=== PATIENT | male | born 1980 | race Caucasian/White ===

== ENCOUNTER 2017-10-24 21:32 | Emergency (ER) | payer OTHER ==
[2017-10-25] MEDS: ONDANSETRON (ODT) 4 MG TAB ODT (00:44)
[2017-10-25] MEDS: AZITHROMYCIN 250 MG TAB PO (00:44)
[2017-10-25] MEDS: KETOROLAC 30 MG INJ IM (00:45)
[2017-10-25] MEDS: CEFTRIAXONE 250 MG INJ IM (00:45)
[2017-10-25 01:03] LABS: ADD UMIC NO; UR ASCORBIC ACID 20 mg/dL (NEGATIVE); UR BILIRUBIN (Dip) NEGATIVE (NEGATIVE); UR BLOOD (Dip) NEGATIVE (NEGATIVE); UR CLARITY CLEAR (CLEAR); UR COLOR YELLOW (YELLOW); UR GLUCOSE (Dip) NEGATIVE (NEGATIVE); UR KETONES (Dip) NEGATIVE (NEGATIVE); UR LEUKOCYTE ESTERASE (Dip) NEGATIVE Leu/ul (NEGATIVE); UR NITRITE (Dip) NEGATIVE (NEGATIVE); UR SPECIFIC GRAVITY (Dip) 1.027 (1.003-1.030); UR TOTAL PROTEIN (Dip) NEGATIVE (NEGATIVE); UR UROBILINOGEN (Dip) 1+ mg/dL (NEGATIVE)
== END 2017-10-25 02:22 | disposition home or self-care (01) ==
LOC: FTE 21:32
DX: N45.2 Orchitis (principal); N45.1 Epididymitis; F17.210 Nicotine dependence, cigarettes, uncomplicated
CPT/HCPCS: 76870; 81003; 87591; 96372; 99285-25

== ENCOUNTER 2018-06-27 12:57 | Emergency (ER) | payer OTHER | END 2018-06-27 13:40 | disposition home or self-care (01) | LOC: FTE 12:57 | DX: L73.9 Follicular disorder, unspecified (principal); F17.210 Nicotine dependence, cigarettes, uncomplicated | CPT/HCPCS: 99283-25; Z7502 ==